=== PATIENT | female | born 2000 | race Hispanic/Latino ===

== ENCOUNTER 2020-10-17 13:22 | Emergency (ER) | payer SELFPAY ==
[2020-10-17 15:26] LABS: Pregnancy Test - Urine (BHCG) Negative (Negative); Pregu Control Background? CLEAR/WHITE (CLR/WHITE); Pregu Control Bar Appear? YES (CONTROL BAR); Specific Gravity 1.026 (1.002-1.036)
--- NOTE | 2020-10-17 16:43 | RAD ---
RIGHT HAND: 10/17/20 Three views. HISTORY: Hand injury with pain. FINDINGS: There is a fracture involving the distal phalanx of the third finger. Fracture line involves the billy cular surface at the DIP joint and results in a chip fracture of the base of this distal phalanx nhi g its radial surface. No other fracture identified. IMPRESSION: Fracture distal phalanx third finger. POS: [id number]
== END 2020-10-17 16:41 | disposition home or self-care (01) ==
LOC: EEVIPCON 13:22 → ERS 13:22
DX: S62.632A Displaced fracture of distal phalanx of right middle finger, initial encounter for closed fracture (principal); W22.8XXA Striking against or struck by other objects, initial encounter
CPT/HCPCS: 81025